=== PATIENT | male | born 1975 | race Caucasian/White ===

== ENCOUNTER 2020-08-22 11:58 | Emergency (ER) | payer BC, SELFPAY ==
[2020-08-22] VITALS (29 sets, daily range): BP systolic 115–158; BP diastolic 80–98; PULSE 72–92; RESP 13–28; TEMP 37.3; O2SAT 94–98
--- NOTE | ~2020-08-22 | CT_ITS ---
EXAMINATION: CTA chest PE protocol DATE: 08/22/2020 14:35 INDICATION: Chest pain and shortness of breath. COVID exposure. TECHNIQUE: Computed tomography (CT) pulmonary angiogram of the chest was performed with a total of 20 0 mL Omnipaque-350 intravenous contrast administered and 2 separate contrast boluses with separate im aging. Additional 3D reconstructions utilizing coronal maximum intensity projection (MIP) were perfor med. Automated exposure control and iterative reconstruction technique were employed. The dose-length product was 2127.34 mGy-cm. COMPARISON: None FINDINGS: Good contrast opacification of the pulmonary arteries. There is mild streak artifact from dense contr ast in the superior vena cava and right atrium. Mild to moderate scattered respiratory motion artifac t which decreases sensitivity in some of the smaller subsegmental pulmonary arteries. No definitive p ulmonary embolism. There are patchy regions of consolidation groundglass opacity scattered throughout both lungs with appearance most consistent with COVID pneumonia. No pleural effusions. Heart size is normal. No pericardial effusion. Thoracic aorta is normal in caliber with no dissection. Mildly prom inent mediastinal bilateral hilar lymph nodes are likely reactive, the largest at the AP window measu ring 11 mm in maximal short axis diameter. Diffuse hepatic steatosis. Mild S-shaped scoliosis of the thoracic spine with mild spondylosis. IMPRESSION: 1. No pulmonary embolism. Sensitivity decreased in some of the smaller subsegmental pulmonary arterie s due to primarily to mild to moderate respiratory motion artifact. 2. Scattered patchy consolidation groundglass opacities with appearance favoring COVID pneumonia. 3. Likely reactive mild mediastinal and bilateral hilar lymphadenopathy. 4. Diffuse hepatic steatosis. Reviewed, dictated and finalized at location A. IMPRESSION: 1. No pulmonary embolism. Sensitivity decreased in some of the smaller subsegme ntal pulmonary arteries due to primarily to mild to moderate respiratory motion artifact. 2. Scattered patchy consolidation groundglass opacities with appearance favorin g COVID pneumonia. 3. Likely reactive mild mediastinal and bilateral hilar lymphadenopathy. 4. Diffuse hepatic steatosis.
--- NOTE | ~2020-08-22 | XR_ITS ---
XR chest 1V portable DATE: 08/22/2020 12:32 INDICATION: Shortness of breath, chest pain. Cough. Covid 19 exposure. TECHNIQUE: Portable AP chest views on 08/22/2020 at 1231 1232 hours COMPARISON: None FINDINGS: There is patchy mild infiltrate in the lateral right mid to lower lung and to a greater ext ent the left lower lobe . No pleural effusion or pulmonary vascular congestion or pneumothorax. The cardiac and mediastinal swe ats are unremarkable for AP projection. There is mild dextro scoliosis of the thoracic spine. IMPRESSION: Bilateral pulmonary infiltrates Reviewed, dictated and finalized at location B.
--- NOTE | 2020-08-22 12:16 | ECG_ITS ---
Measurements Intervals [facility] Rate: 93 P: 4 VA: 156 QRS: 19 QRSD: 118 T: 44 QT: 348 QTc: 434 Interpretive Statements SINUS RHYTHM BORDERLINE R WAVE PROGRESSION, ANTERIOR LEADS BASELINE ARTIFACT- I, II, III, AVR, AVL, AVF, V1-V6 BORDERLINE ECG Electronically Signed On 08-22-2020 13:04:43 CDT by Jules Singh D.O.
--- NOTE | 2020-08-22 13:13 | PC.NURSE ---
Patient's O2 ranged from 93%-95% while ambulating with pulse oximeter on. EDP López notified.
[2020-08-22 13:24] LABS: Basophils Percent Auto 0.4 % (0.2-1.2); Eosinophils Absolute Auto 0.1 K/mm3 (0-0.3); Eosinophils Percent Auto 1.1 % (0-4.4); Hematocrit 50.5 % (42.0-52.0); Hemoglobin 16.7 g/dL (14.0-18.0); Immature Granulocyte Absolute 0.02 K/mm3 (0.00-0.031); Immature Granulocyte Percent A 0.4 % (0-0.5); Lymphocytes Absolute Auto 1.72 K/mm3 (0.9-3.2); Lymphocytes Percent Auto 31.2 % (18.3-44.2); Mean Corpuscular HGB Conc 33.1 g/dl (32-36); Mean Corpuscular Hemoglobin 28.9 pg (26-34); Mean Corpuscular Volume 87.5 fl (80-100); Mean Platelet Volume 11.4 fl (7.4-10.4); Monocytes Absolute Auto 0.4 K/mm3 (0.1-0.6); Monocytes Percent Auto 7.3 % (2.6-8.5); Neutrophils Absolute Auto 3.3 K/mm3 (1.3-6.7); Neutrophils Percent Auto 59.6 % (45.5-73.1); Platelet Count Result 173 k/mm3 (150-375); Red Blood Count 5.77 M/mm3 (4.6-6.20); Red Cell Distribution Width 12.5 % (11.5-14.5); White Blood Count 5.5 K/mm3 (4.5-10.0)
[2020-08-22 13:43] LABS: Partial Thromboplastin Time 30.7 SECONDS (22.3-36.8)
[2020-08-22 13:45] LABS: Anion Gap 11 mmol/L (8-16); Blood Urea Nitrogen 15 mg/dL (9-20); Calcium 8.9 mg/dL (8.4-10.2); Carbon Dioxide 23 mmol/L (22-30); Chloride 102 mmol/L (98-107); Estimated CRCL calculation 138 ml/min; Estimated Glomerular Filt Rate > 60; Glucose 105 mg/dL (75-110); Potassium 4.4 mmol/L (3.4-5.0); Sodium 136 mmol/L (137-145)
[2020-08-22 13:55] LABS: Troponin I < 0.012 ng/mL (0.000-0.034)
[2020-08-22] MEDS: KETOROLAC 30 MG/ML VIAL (*BKC) IV PUSH (14:02)
[2020-08-22] MEDS: SODIUM CHLORIDE 0.9% IV 1,000 ML 999 ML IV CONT (14:03)
--- NOTE | 2020-08-22 14:08 | PC.NURSE ---
Per JAMAL Dawn, no Aspirin needed.
--- NOTE | 2020-08-22 14:10 | ED.GENADULT ---
HPI - General Adult General Chief complaint: Chest Pain Stated complaint: covid symptoms, family is + Time Seen by Provider: 08/22/20 12:43 History of Present Illness HPI narrative: Patient is a 45-year-old male who presents ER with chest pain. Patient reports family was Covid positive with daughter testing positive on August 15 after being swabbed on August 14. Subsequently patient became symptomatic on August 15. He has been having fevers and chills and exhaustion. He began developing chest pain with cough and shortness of breath yesterday. Symptoms have been persistent. He has not been vaccinated against COVID-19. Pain is a pressure in the center of his chest that is nonradiating. All symptoms worsen when walking around as he develops uncontrolled coughing. Related Data Allergies Allergy/AdvReac Type Severity Reaction Status Date / Time No Known Allergies Allergy Verified 08/22/20 13:35 Review of Systems Review of Systems: All systems reviewed & are unremarkable except as noted in HPI and below Constitutional: Constitutional: Reports chills, Reports fatigue and Reports fever(s) ENT: Reports nasal congestion and Denies sore throat Cardiovascular: Cardiovascular: Reports chest pain, Denies rapid heart rate and Denies radiating jaw, neck or arm pain Respiratory: Respiratory: Reports cough, Reports dyspnea and Denies wheezing Gastrointestinal: Gastrointestinal: Denies abdominal pain, Denies nausea and Denies vomiting PMFSH Past Medical History Medical History (Updated 08/22/20 @ 16:42 by Gadiel Dawn MD) Healthy adult male Surgical History Surgical History (Updated 08/22/20 @ 16:42 by Gadiel Dawn MD) No history of previous surgery Social History Social History (Updated 08/22/20 @ 16:42 by Gadiel Dawn MD) Smoking status: Never smoker Exam Narrative: Exam Narrative: GENERAL: Uncomfortable-appearing, well-nourished, and in no acute distress. HEAD: Normocephalic, atraumatic. CHEST: Clear to auscultation. No respiratory distress. HEART: Regular rate and rhythm. Normal peripheral pulses. ABDOMEN: Soft, nontender, nondistended. EXTREMITIES: Normal range of motion. No edema. SKIN: Warm, dry, no rash. NEURO: Alert and oriented x3. PSYCH: Normal mood and affect. Course Course Emergency Course: Informed of results. Feels much better after fluids and Toradol. Discharge home. Vital Signs Vital signs: Vital Signs Temperature 99.2 F 08/22/20 12:09 Pulse Rate 92 08/22/20 12:09 Respiratory Rate 24 H 08/22/20 12:09 Blood Pressure 150/98 H 08/22/20 12:09 Pulse Oximetry 98 08/22/20 12:09 Temperature 99.2 F 08/22/20 14:32 Pulse Rate 76 08/22/20 15:57 Respiratory Rate 19 08/22/20 15:57 Blood Pressure 115/90 08/22/20 15:57 Pulse Oximetry 96 08/22/20 15:57 Medical Decision Making Vital Signs Vital Signs: Vital Signs Temperature 99.2 F 08/22/20 12:09 Pulse Rate 92 08/22/20 12:09 Respiratory Rate 24 H 08/22/20 12:09 Blood Pressure 150/98 H 08/22/20 12:09 Pulse Oximetry 98 08/22/20 12:09 Temperature 99.2 F 08/22/20 14:32 Pulse Rate 76 08/22/20 15:57 Respiratory Rate 19 08/22/20 15:57 Blood Pressure 115/90 08/22/20 15:57 Pulse Oximetry 96 08/22/20 15:57 Lab Data Result diagrams: 08/22/20 13:11 08/22/20 13:11 Labs: Lab Results 08/22/20 08/22/20 08/22/20 Range/Units 13:11 13:11 13:11 WBC 5.5 (4.5-10.0) K/mm3 RBC 5.77 (4.6-6.20) M/mm3 Hgb 16.7 (14.0-18.0) g/dL Hct 50.5 (42.0-52.0) % MCV 87.5 (80-100) fl MCH 28.9 (26-34) pg MCHC 33.1 (32-36) g/dl RDW 12.5 (11.5-14.5) % Plt Count 173 (150-375) k/mm3 MPV 11.4 H (7.4-10.4) fl Immature Gran % (Auto) 0.4 (0-0.5) % Neut % (Auto) 59.6 (45.5-73.1) % Lymph % (Auto) 31.2 (18.3-44.2) % [place] % (Auto) 7.3 (2.6-8.5) % Eos % (Auto) 1.1 (0-4.4) % Baso % (Auto) 0.4
[2020-08-22 14:22] LABS: Prothrombin Time 12.7 Seconds (11.1-14.7)
[2020-08-22 17:25] LABS: Troponin I < 0.012 ng/mL (0.000-0.034)
[2020-08-23 17:38] LABS: SARS-CoV-2 RNA PCR Positive
== END 2020-08-22 17:51 | disposition home or self-care (01) ==
PROVIDERS: Emergency Provider Emergency Medicine
DX: U07.1 COVID-19 (principal); J12.82 Pneumonia due to coronavirus disease 2019
CPT/HCPCS: 36415; 71045; 71275; 80048; 84484; 85025; 85610; 85730; 93005; 96361; 96374; 99284; C9803; J1885; J7030; Q9967; U0003; U0005

== ENCOUNTER 2021-06-30 10:58 | Outpatient (CLI) | payer BC, SELFPAY ==
--- NOTE | ~2021-06-30 | XR_ITS ---
EXAMINATION: XR chest 2V 06/30/2021 11:25 INDICATION: Cough. Recent cold. PROCEDURE: 2 view chest COMPARISON: 08/22/2020 FINDINGS: The lungs are clear. The cardiomediastinal silhouette is within normal limits. There are no pleural effusions. There is no pneumothorax suspected. IMPRESSION: 1: NO ACUTE CARDIOPULMONARY DISEASE. Reviewed, dictated and finalized at location B.
== END 2021-06-30 10:59 | disposition home or self-care (01) ==
LOC: ANHIMG 11:00
PROVIDERS: PCP Family Medicine; Visit Provider Family Medicine
DX: R05.9 Cough, unspecified (principal)
CPT/HCPCS: 71046

== ENCOUNTER 2024-02-25 20:25 | Emergency (ER) | payer OTHER, SELFPAY ==
--- NOTE | ~2024-02-25 | XR_ITS ---
CHEST RADIOGRAPH, PA AND LATERAL CLINICAL HISTORY: sob/uri x1 month . COMPARISON: 06/30/2021 TECHNIQUE: PA and lateral views of the chest. FINDINGS The cardiomediastinal silhouette is unremarkable. Patchy groundglass opacification of the right upper lobe, possibly an early infiltrate. The remainder of the lungs are clear Visualized osseous structures and soft tissues are unremarkable. IMPRESSION: Possible early infiltrate within the right upper lobe, as detailed above. Reviewed, dictated and finalized at location A. SUPERVISOR
[2024-02-25 20:28] VITALS: BP 195/92; PULSE 79; RESP 18; TEMP 36.3; O2SAT 98
--- NOTE | 2024-02-25 20:31 | PC.NURSE ---
notified David SegoviaHead Grease Maker of infection control symptoms at 2030
[2024-02-25 21:17] LABS: Basophils Absolute Auto 0.1 K/mm3 (0.0-0.1); Basophils Percent Auto 0.7 % (0.2-1.2); Eosinophils Absolute Auto 0.4 K/mm3 (0-0.3); Eosinophils Percent Auto 6.1 % (0-4.4); Hematocrit 48.5 % (42.0-52.0); Hemoglobin 16.3 g/dL (14.0-18.0); Immature Granulocyte Absolute 0.02 K/mm3 (0.00-0.031); Immature Granulocyte Percent A 0.3 % (0-0.5); Lymphocytes Absolute Auto 1.96 K/mm3 (0.9-3.2); Mean Corpuscular HGB Conc 33.6 g/dl (32-36); Mean Corpuscular Hemoglobin 29.5 pg (26-34); Mean Corpuscular Volume 87.9 fl (80-100); Mean Platelet Volume 10.9 fl (7.4-10.4); Monocytes Absolute Auto 0.6 K/mm3 (0.1-0.6); Monocytes Percent Auto 7.7 % (2.6-8.5); Neutrophils Absolute Auto 4.2 K/mm3 (1.3-6.7); Neutrophils Percent Auto 58.2 % (45.5-73.1); Platelet Count Result 223 k/mm3 (150-375); Red Blood Count 5.52 M/mm3 (4.6-6.20); Red Cell Distribution Width 12.9 % (11.5-14.5); White Blood Count 7.3 K/mm3 (4.5-10.0)
[2024-02-25 21:20] LABS: Influenza A QL RT-PCR Positive (Negative); Influenza B QL RT-PCR Negative (Negative); RSV RNA, RT-PCR Negative (Negative); SARS-CoV-2 RNA PCR Negative (Negative)
[2024-02-25 21:26] LABS: Alanine Aminotransferase 40 U/L (6-50); Albumin Level 4.1 g/dL (3.5-5.1); Alkaline Phosphatase 65 U/L (38-126); Anion Gap 10 mmol/L (4-12); Aspartate Amino Transferase 34 U/L (17-59); Bilirubin,Total 0.8 mg/dL (0.2-1.3); Blood Urea Nitrogen 15 mg/dL (9-20); Calcium 8.3 mg/dL (8.4-10.2); Carbon Dioxide 26 mmol/L (22-30); Chloride 103 mmol/L (98-107); Estimated CRCL calculation 137 ml/min; Estimated Glomerular Filt Rate > 60; Glucose 142 mg/dL (65-110); Potassium 4.3 mmol/L (3.4-5.0); Sodium 139 mmol/L (137-145)
--- NOTE | 2024-02-26 01:59 | ED.URI ---
HPI - URI/Sore Throat General Chief Complaint: Upper Respiratory Infection Stated Complaint: URI symptoms x1m Time Seen by Provider: 02/26/24 01:00 Source: patient Mode of arrival: ambulatory Limitations: no limitations History of Present Illness HPI Narrative: Patient is a 48-year-old male who presents the ED with reports of URI symptoms. Patient reports he has been ill for the last 1 month with URI symptoms, including cough, sinus pressure/drainage, congestion intermittent subjective fevers. He tested himself positive for COVID-19 with a home test on 01/28/2024. He then traveled of the country to [facility] and the [facility]. He states his symptoms did temporarily improve but became worse after scuba diving and on the airplane ride home. He has been home since 02/17, but states over the past few days he has been feeling worse. Also reporting myalgias, fatigue, rib pain with coughing. States some of his family members have been sick with similar sx's. Denies significant SOB/CP. Related Data Allergies Allergy/AdvReac Type Severity Reaction Status Date / Time No Known Allergies Allergy Verified 02/25/24 20:33 Review of Systems Review of Systems: All systems reviewed & are unremarkable except as noted in HPI. All systems reviewed & are unremarkable except as noted in HPI and below PMFSH Past Medical History Medical History Nicotine abuse Morbid (severe) obesity due to excess calories History of tobacco abuse COVID-19 Healthy adult male Surgical History Surgical History No history of previous surgery Family History Family History Father Alcoholic Heart disease Social History Social History Social History: Years smoked: 3 Smoking status: Smoker, status unknown (Pt vapes) Tobacco type: cigarettes and e-cigarettes/vaping Second hand tobacco smoke exposure: Yes Additional smoking assessment comments: Pt use to smoke cigarettes for 16 years, previously. Alcohol intake: current Alcohol use details: Occasionally Substance use: never Substance use type: does not use Lack of Transportation: No Lack of Food: Never True Current Housing: I Have Housing Concerned About Future Housing: No Difficulty Paying Gas/Electric Bills: No Difficulty Paying for Meds: No Currently Unemployed: No Education: Decline to Answer Difficulty w/ Childcare or Family Care: No Living arrangements: with family Occupation/Education: occupation Gender identity (if verbalized by the patient): Male Sexual Orientation (if Verbalized by the Patient): Straight or Heterosexual Exam Narrative: GENERAL: Mildly ill appearing, morbidly obese with BMI 45.3, non-toxic, in no acute distress. HEAD: Normocephalic, atraumatic. RESPIRATORY: Airway patent, respirations nonlabored. Clear to auscultation bilaterally, no rales, rhonchi, wheezing. Occasional expiratory wheezing, particularly in right lower lung zone. Frequent coughing on exam. CARDIOVASCULAR: Regular rate and rhythm without murmurs, rubs, or gallops. MUSCULOSKELETAL: Moves all extremities. No gross deformities. SKIN: Warm, dry, normal color. NEURO: A&O X3. Speech clear. Cranial nerves II-XII grossly intact. Steady gait. No ataxic movements. PSYCHIATRIC: Appropriate mood and affect. Normal interaction. Course Vital Signs Vital signs: Vital Signs Temperature 97.4 F L 02/25/24 20:28 Pulse Rate 79 02/25/24 20:28 Respiratory Rate 18 02/25/24 20:28 Blood Pressure 195/92 H 02/25/24 20:28 Pulse Oximetry 98 02/25/24 20:28 Oxygen Delivery Room Air 02/25/24 20:28 Temperature 97.9 F 02/26/24 02:30 Pulse Rate 76 02/26/24 02:30 Respiratory Rate 16 02/26/24 02:30 Blood Pressure 117/76 02/26/24 02:30 Pulse Oximetry 98 02/26/24 02:30 Oxygen Delivery Room Air 02/25/24 20:28 MDM - URI/Sore Throat MDM Narrative Medical decision making narrative: Patient presented to ED with approximately 1 month history of URI symptoms, worsening over last few days. Patient was initially hypertensive upon arrival. This did improve without intervention. Patient tested positive for influenza A. Do believe this is consistent with his clinical picture. Laboratory studies are otherwise unremarkable. No significant abnormalities. Blood glucose is mildly elevated. Chest x-ray showing possible right upper lobe pneumonia. Given prolonged nature of patient's symptoms, will treat for infectious etiology with antibiotics. His symptoms have been ongoing for several days, he is medicated for tamiflu. Started on Augmentin and doxycycline. Also given rx's for tessalon perles and inhaler for home. His symptoms have been ongoing for quite some time and he is denying any chest pain or shortness of breath to suggest need for further labs or imaging at this time. Patient otherwise feels safe going home. Recommended he have close follow-up with his PCP for further evaluation. He was given strict return precautions. He voiced understanding. Discharged in stable condition. Medical Records Attestation: I reviewed the patient's medical records. Lab Data Attestation: I reviewed the patient's lab results. 02/25/24 21:09 02/25/24 21:09 Labs: Lab Results 02/25/24 02/25/24 Range/Units 20:36 21:09 WBC 7.3 (4.5-10.0) K/mm3 RBC 5.52 (4.6-6.20) M/mm3 Hgb 16.3 (14.0-18.0) g/dL Hct 48.5 (42.0-52.0) % MCV 87.9 (80-100) fl MCH 29.5 (26-34) pg MCHC 33.6 (32-36) g/dl RDW 12.9 (11.5-14.5) % Plt Count 223 (150-375) k/mm3 MPV 10.9 H (7.4-10.4) fl Immature Gran % (Auto) 0.3 (0-0.5) % Neut % (Auto) 58.2 (45.5-73.1) % Lymph % (Auto) 27.0 (18.3-44.2) % [place] % (Auto) 7.7 (2.6-8.5) % Eos % (Auto) 6.1 H (0-4.4) % Baso % (Auto) 0.7 (0.2-1.2) % Lymph # (Auto) 1.96 (0.9-3.2) K/mm3 [place] # (Auto) 0.6 (0.1-0.6) K/mm3 Eos # (Auto) 0.4 H (0-0.3) K/mm3 Baso # (Auto) 0.1 (0.0-0.1) K/mm3 Abs Immat Gran (auto) 0.02 (0.00-0.031) K/mm3 Absolute Neuts (auto) 4.2 (1.3-6.7) K/mm3 Absolute Nucleated RBC 0.000 (0.0-0.012) K/mm3 Nucleated RBC % 0.0 (0.0-0.2) % Sodium 139 (137-145) mmol/L Potassium 4.3 (3.4-5.0) mmol/L Chloride 103 (98-107) mmol/L Carbon Dioxide 26 (22-30) mmol/L Anion Gap 10 (4-12) mmol/L BUN 15 (9-20) mg/dL Creatinine 0.96 (0.7-1.3) mg/dL Estim Creat Clear Calc 137 ml/min Estimated GFR > 60 (59 - ) Glucose 142 H (65-110) mg/dL Calcium 8.3 L (8.4-10.2) mg/dL Total Bilirubin 0.8 (0.2-1.3) mg/dL AST 34 (17-59) U/L ALT 40 (6-50) U/L Alkaline Phosphatase 65 (38-126) U/L Total Protein 7.0 (6.3-8.2) g/dL Albumin 4.1 (3.5-5.1) g/dL Influenza A (RT-PCR) Positive A (Negative) Influenza B (RT-PCR) Negative (Negative) RSV (RT-PCR) Negative (Negative) SARS-CoV-2 RNA (RT-PCR) Negative (Negative) Imaging Data Attestation: I personally reviewed and interpreted this imaging study as follows: Radiologist's impression: ITS Impressions Chest X-Ray 02/25/24 21:36 IMPRESSION: Possible early infiltrate within the right upper lobe, as detailed above. Discharge Plan Discharge Clinical Impression: Influenza A Pneumonia Qualifiers: Pneumonia type: due to unspecified organism Laterality: right Lung location: upper lobe of lung Qualified Code(s): J18.9 - Pneumonia, unspecified organism Patient Disposition: Home, Self-Care Condition: Stable Instructions: Antibiotic Form, Influenza (ED), Community Acquired Pneumonia (ED), Cold Symptoms (ED) Additional Instructions: You were diagnosed with Influenza A today. Isolate at home as you are contagious. Take antibiotics as prescribed for pneumonia. Stay well-hydrated at home. Recommend electrolyte rich fluids, Gatorade, Pedialyte, body armor. Tessalon Perles as needed for cough. Recommend Tylenol and Ibuprofen around the clock for discomfort and/or fevers. Recommend ioio-fka-hulawgm cough and cold medicines for symptom relief, Delsym, Mucinex, DayQuil, NyQuil, Sudafed, Robitussin, TheraFlu. Follow with primary care doctor upon resolution of symptoms. Return to the ED if you experience chest pain, difficulty breathing, unable to keep down food or drink, severe pain, or any other symptoms of concern. Patient Language: Vincentian Prescriptions: New benzonatate 200 mg capsule 200 mg PO TID PRN (Reason: cough) Qty: 20 0RF doxycycline monohydrate 100 mg tablet 100 mg PO BID 7 Days Qty: 14 0RF amoxicillin-pot clavulanate 875-125 mg tablet 1 tablet PO Q12H 7 Days Qty: 14 0RF albuterol sulfate 90 mcg/actuation HFA aerosol inhaler 2 puff inhalation QID PRN (Reason: shortness of breath or wheezing) Qty: 6.7 0RF No Action irbesartan-hydrochlorothiazide 300-12.5 mg tablet 1 tablet PO DAILY Qty: 30 5RF metoprolol succinate 50 mg tablet extended release 24 hr See Rx Instructions .ROUTE .COMPLEX Qty: 90 1RF Dose Instruction: TAKE 1 TABLET BY MOUTH DAILY Rx Instructions: TAKE 1 TABLET BY MOUTH DAILY cetirizine [Zyrtec] 10 mg tablet 10 mg PO DAILY Qty: 90 1RF azelastine 137 mcg (0.1 %) aerosol,spray See Rx Instructions .ROUTE .COMPLEX Qty: 30 0RF Dose Instruction: INSTILL 1 SPRAY INTO EACH NOSTRIL EVERY 12 HOURS Rx Instructions: INSTILL 1 SPRAY INTO EACH NOSTRIL EVERY 12 HOURS amlodipine 10 mg tablet See Rx Instructions .ROUTE .COMPLEX Qty: 90 0RF Dose Instruction: TAKE 1 TABLET BY MOUTH EVERYDAY AT BEDTIME Rx Instructions: TAKE 1 TABLET BY MOUTH EVERYDAY AT BEDTIME Follow-up/Referrals: Dia,Yuly Sanchez MD [Primary Care Provider] - Time of Disposition: 02:03
[2024-02-26] MEDS: DOXYCYCLINE HYCLATE 100 MG TABLET PO (02:06)
[2024-02-26] MEDS: AMOXICILLIN/CLAVULANATE K 875-125 MG TAB 1 TABLET PO (02:06)
[2024-02-26 02:30] VITALS: BP 117/76; PULSE 76; RESP 16; TEMP 36.6; O2SAT 98
== END 2024-02-26 02:32 | disposition home or self-care (01) ==
PROVIDERS: Emergency Medicine; Emergency Provider Physician Assistant; PCP Family Medicine
DX: J18.9 Pneumonia, unspecified organism (principal); J10.1 Influenza due to other identified influenza virus with other respiratory manifestations; Z20.822 Contact with and (suspected) exposure to COVID-19
CPT/HCPCS: 36415; 71046; 80053; 85025; 87637; 99284; A9270